=== PATIENT | female | born 1975 | race Caucasian/White ===

== ENCOUNTER 2017-03-16 00:54 | Emergency (ER) | payer MEDICAID ==
[~2017-03-16] VITALS: Ht 147.3 cm; Wt 52.3 kg
[2017-03-16 07:43] LABS: CLARITY URINE CLOUDY (CLEAR); COLOR URINE DARK YELLOW (YELLOW); GLUCOSE URINE NEGATIVE (NEGATIVE); KETONES URINE NEGATIVE (NEGATIVE); LEUKOCYTE ESTERASE URINE 3+ (NEGATIVE); NITRITE URINE POSITIVE (NEGATIVE); OCCULT BLOOD URINE 3+ (NEGATIVE); PH URINE 5.5 (4.5-8.0); PROTEIN URINE TRACE (NEGATIVE); SPECIFIC GRAVITY URINE 1.016 (1.005-1.030)
[2017-03-16 08:39] VITALS: BP 114/68
== END 2017-03-16 08:59 | disposition home or self-care (01) ==
LOC: ER 00:54
DX: N39.0 Urinary tract infection, site not specified (principal); F20.9 Schizophrenia, unspecified; F19.10 Other psychoactive substance abuse, uncomplicated
CPT/HCPCS: 81001; 81025; 99283

== ENCOUNTER 2017-05-19 12:20 | Emergency (ER) | payer MEDICAID ==
[~2017-05-19] VITALS: Ht 147.3 cm; Wt 54.8 kg
[2017-05-19 13:25] VITALS: BP 124/84
[2017-05-19] MEDS ORDERED: ONDANSETRON HCL 4MG/2ML VIAL IV STA (13:42)
[2017-05-19] MEDS ORDERED: SODIUM CHLORIDE 0.9% 1,000 ML IV ONE (13:42)
[2017-05-19 13:58] LABS: EOSINOPHILS % 1.9 % (0.0-5.0); HEMATOCRIT. 31.5 % (36.0-48.0); HEMOGLOBIN. 9.9 g/dL (12.0-16.0); LYMPHOCYTES % 22.1 % (20.0-50.0); MEAN CORPUSCULAR HEMOGLOBIN 21.3 pg (28.0-32.0); MEAN PLATELET VOLUME 8.6 fl (7.4-10.4); MONOCYTES % 9.2 % (2.0-8.0); NEUTROPHILS % 65.8 % (40.0-76.0); PLATELET 261 x1000/uL (130-400); RED BLOOD CELL COUNT 4.64 mill/uL (4.2-5.4); RED CELL DISTRIBUTION WIDTH 20.2 % (11.6-14.6)
[2017-05-19 14:07] LABS: CHLORIDE 103 mEq/L (98-107); PARTIAL THROMBOPLASTIN TIME 22.6 sec (23.4-31.0)
[2017-05-19 14:08] LABS: HCG SCREEN NEGATIVE
[2017-05-19 14:17] LABS: CARBON DIOXIDE 30 mEq/L (21-32); MEAN CORPUSCULAR VOLUME 67.9 fL (81.0-99.0)
[2017-05-19 14:29] LABS: CLARITY URINE CLEAR (CLEAR); COLOR URINE YELLOW (YELLOW); GLUCOSE URINE NEGATIVE (NEGATIVE); KETONES URINE TRACE (NEGATIVE); LEUKOCYTE ESTERASE URINE 1+ (NEGATIVE); NITRITE URINE NEGATIVE (NEGATIVE); OCCULT BLOOD URINE NEGATIVE (NEGATIVE); PROTEIN URINE NEGATIVE (NEGATIVE); SPECIFIC GRAVITY URINE 1.026 (1.005-1.030)
== END 2017-05-19 16:41 | disposition home or self-care (01) ==
LOC: ER 13:49
DX: N76.0 Acute vaginitis (principal); F17.210 Nicotine dependence, cigarettes, uncomplicated; F15.10 Other stimulant abuse, uncomplicated
CPT/HCPCS: 36415; 76857; 80053; 81001; 83690; 84703; 85025; 85610; 85730; 87210; 96361; 96374; 99285; J2405; J7030; Z7610